=== PATIENT | female | born 1930 | race Caucasian/White ===

== ENCOUNTER 2017-05-30 18:50 | Inpatient (IN) | payer MEDICARE, BC ==
[~2017-05-30] VITALS: Ht 160 cm; Wt 63.3 kg
--- NOTE | ~2017-05-30 | CON ---
PATIENT'S NAME: LISA COWAN [facility] AGE: 87 Y [address] ROOM: [place] [address] LOCATION: [facility] [place] ADMIT DATE: 05/30/2017 Consultation DISCHARGE DATE: FAMILY PHYSICIAN: Génesis Iraheta APRN ATTENDING PHYSICIAN: TOMEKA SEVERINO REFERRING PHYSICIAN: JORDAN FRIED MD A consult for ANNELIESE Thomson. HISTORY OF PRESENT ILLNESS: This 87-year-old lady, who is referred for rehab evaluation, was admitted on 05/31/2017 for hyperkalemia, renal insufficiency, poor appetite, decreased stamina, history of nephrolithiasis, right renal pelvis stones. Followed conservative treatment. Now, she is also reportedly with elevated BUN and creatinine. She was putting very little urine if any output and was diagnosed as urosepsis with hypotension. PAST MEDICAL HISTORY: Past history of significance as follows: 1. Dementia. 2. Hypothyroid. 3. Degenerative joint disease, both knees mostly. 4. Frequent UTIs, on and off. 5. Nephrolithiasis. 6. Status post perinephric abscess. PHYSICAL EXAMINATION: GENERAL: She is now alert, fairly well oriented, slow, but correct. Has a Johnson catheter. NEUROLOGIC: She can comprehend and express fairly well. Voice is clear and not wet. Can move all 4. She is slow, but can move. Muscle strength is 3+ to 4- over 5 overall. Neurologically intact. She can swallow without difficulty. VITAL SIGNS: Blood pressure 125/59, temperature 99.4, pulse 83, and respiration rate 16. She is 5 feet 3 inches tall and weighs 68.6 kg. MEDICATIONS: She is on the following medications: 1. Levaquin. 2. Protonix. 3. Namenda. 4. Albuterol. 5. Tylenol. 6. NaCl. PATIENT'S NAME: LISA COWAN [facility] AGE: 87 Y [address] ROOM: [place] [address] LOCATION: [facility] [place] ADMIT DATE: 05/30/2017 Consultation DISCHARGE DATE: FAMILY PHYSICIAN: Génesis Iraheta APRN ATTENDING PHYSICIAN: TOMEKA SEVERINO 7. Diflucan. 8. Potassium chloride. 9. Aricept. 10. Seroquel. 11. Zyprexa. 12. Haldol. 13. . 14. Meropenem. ASSESSMENT AND PLAN: She is able to ambulate 125 feet with short steps and front-wheeled walker, contact guard assistant manager quality management, without really much help. I feel this lady can go back to her assisted living, can continue there with PT, OT, and on a regular basis. I discussed all this with her daughter. She verbalized understanding and agreement. She should follow with her family physician to continue to encourage her to be active. Otherwise, she will fall behind in her ability. Thank you for this referral. MD CIRILO SCHNEIDER/modl /[id number] d: 06/04/17 1406 t: 06/06/17 0922, CONSULTATION REPORT
--- NOTE | ~2017-05-30 | OR ---
PATIENT'S NAME: LISA COWAN [facility] AGE: 87 Y [address] ROOM: [place] [address] LOCATION: [facility] [place] ADMIT DATE: 05/30/2017 OR/Procedure Report DISCHARGE DATE: FAMILY PHYSICIAN: Génesis Iraheta APRN ATTENDING PHYSICIAN: TOMEKA SEVERINO SURGEON: Zeus Ansari MD LEGAL COMPLIANCE OFFICER: DATE OF PROCEDURE: 06/16/2017 PREOPERATIVE DIAGNOSIS: Bilateral proximal ureteral stones. POSTOPERATIVE DIAGNOSIS: Bilateral proximal ureteral stones. PROCEDURES PERFORMED: Cystoscopy, right stent placement, and right extracorporeal shock wave lithotripsy. ANESTHESIA: MAC. INDICATIONS FOR PROCEDURE: The patient is an 87-year-old female with known bilateral nephrolithiasis. The patient has had prior ESWL without significant fracturing of her stones. She has also had ureteroscopy with limits of fracturing of her stones. Because of her advanced age and dementia, conservative management was the plan. During this hospitalization, she has had a urinary tract infection and was noted to have a right-sided hydronephrosis and what appears to be a separate upper pole. Therefore, it was discussed with the family members of another attempt at ESWL to potentially relieve the obstruction. DETAILS OF PROCEDURE: After informed consent was obtained, the patient was taken to the operating room. A MAC anesthetic was applied. She was placed in the dorsal lithotomy position. The groin area was prepped and draped in normal sterile fashion. Cystoscope was introduced into the urethra and bladder without difficulty. The right ureteral orifice was identified and cannulated with a guidewire up into the renal pelvis. Next, a 6-Macedonian multi- length stent was passed over the guidewire up into the renal pelvis. The patient was then transferred to the lithotripsy table. Fluoroscopy was used to target her stone. She received shocks starting at 14 kilovolts and gradually increased to 24 kilovolts. The patient received a total of 3000 shocks and at this time the stone appeared to fragment at least partially with the treatment. The patient tolerated her procedure well and was transferred to the recovery room in good condition. PATIENT'S NAME: LISA COWAN [facility] AGE: 87 Y [address] ROOM: [place] [address] LOCATION: [facility] [place] ADMIT DATE: 05/30/2017 OR/Procedure Report DISCHARGE DATE: FAMILY PHYSICIAN: Génesis Iraheta APRN ATTENDING PHYSICIAN: TOMEKA SEVERINO MD KIKE POON/filemon /[id number] CC: Génesis Iraheta APRN d: 06/16/17 2151 t: 06/23/17 0904, OPERATIVE SUMMARY
--- NOTE | ~2017-05-30 | DS ---
PATIENT'S NAME: LISA TANNER [facility] AGE: 87 Y [address] ROOM: [place] [address] LOCATION: [facility] [place] ADMIT DATE: 05/30/2017 Discharge Summary DISCHARGE DATE: 06/18/2017 FAMILY PHYSICIAN: Génesis Iraheta APRN ATTENDING PHYSICIAN: Inna Ontiveros CONSULTING PHYSICIANS: 1. La Ariza MD, Nephrology. 2. Alecia Miller MD, Gastroenterology. 3. Zeus Ansari MD, Urology. 4. Gulshan Leon MD, Physiatry. DISCHARGE DIAGNOSES: 1. Sepsis, likely urosepsis, resolved. 2. Acute kidney injury on chronic kidney disease 4. 3. Jaimie cystitis. 4. Hypokalemia, severe, resolved. 5. Obstructing right nephrolithiasis. 6. Dementia. 7. Gastritis. 8. Anemia of chronic disease. 9. Advanced age. 10. Depression. 11. Right-sided hydronephrosis, resolving. PROCEDURES: 1. Cystoscopy with right stent placement. 2. Right extracorporeal shock wave lithotripsy on 06/16/[address] Zeus Ansari. DISCHARGE MEDICATIONS: 1. Vitamin D3 2000 units p.o. twice daily. 2. Benazepril HCl 5 mg p.o. q.h.s. 3. Namenda XR 28 mg p.o. daily. 4. Mycostatin daily to affected areas. 5. Protonix 40 mg p.o. q.h.s. 6. Zoloft 100 mg p.o. q.h.s. 7. Tylenol 500 mg p.o. q.4 hours p.r.n. pain. 8. PreserVision 1 tablet p.o. daily. 9. Cytomel 25 mcg p.o. daily. 10. Multivitamin p.o. daily. 11. Colace 100 mg p.o. b.i.d. p.r.n. constipation. 12. Ferrous sulfate 325 mg p.o. twice daily. 13. Albuterol sulfate 2.5 mg per 0.5 mL 1 vial inhaler q.4 hours p.r.n. dyspnea. [facility] 87 Y [address] ROOM: [id number] [place], [place] [address] LOCATION: [facility] [place] ADMIT DATE: 05/30/2017 Discharge Summary DISCHARGE DATE: 06/18/2017 FAMILY PHYSICIAN: Génesis Iraheta APRN ATTENDING PHYSICIAN: Inna Ontiveros. Guaifenesin 600 mg p.o. twice daily p.r.n. congestion. MEDICATIONS HELD UPON DISCHARGE: 1. ASA 325 mg daily. 2. Lasix 20 mg p.o. daily. 3. Potassium chloride 20 mEq p.o. daily. 4. Mobic 7.5 mg p.o. daily. PERTINENT LABORATORY AND DATA: Urine from 05/30/2017 grew out Jaimie albicans [id number] colonies. Urine culture collected on 06/07/2017 showed no growth after 2 days. Potassium at the time of admission was elevated at 5.5, we got this trended down at its honorio, was 2.9, on the day of discharge was 4.4. Creatinine at the time of admission 6.0, this trended to a honorio of 1.9 on 06/03/2017, then trended back up to 2.7 by 06/10/2017, then leveled out and trended to 2.2 which is where this was at upon day of discharge. GFR on admission was 7 and 25 on the day of discharge. Hemoglobin at admission was 11.2, trended down to 7.9, recovered and was 9.0 at the time of discharge. Iron on 06/14/2017 was 38. Ferritin elevated at 361.2. Magnesium at admit was 2.5, this trended down to 1.7, recovered and was at 2.2 on the day of discharge. Phosphorus 4.6 at admission, trended down to 1.5 on 06/02/2017, then recovered and was 3.5 on the day of discharge. Occult stool positive x1 on 05/30/2017. Blood cultures negative from 05/30/2017 and these were also repeated on 06/07/2017. HOSPITAL COURSE: Please refer to the admitting H and P dictated by Dr. Potts for more detailed outline of the patient's presentation. The patient was admitted, and the patient was started on IV Protonix drip and sepsis workup was initiated. Lactate was elevated at 1.9, which dropped into normal range of 1.1 on 05/31. Procalcitonin at admission was 0.11, which trended down to 0.6 by June 07. The patient was given Kayexalate and insulin to help treat her hyperkalemia. She was placed on IV meropenem. GI seen the patient in consultation. Please refer to his dictation for further outline of the patient's presentation. They scheduled her for EGD and colonoscopy. The patient did have a biopsy of the gastric lining, which did show mild chronic gastritis and reactive gastropathy. A small polyp was biopsied and also did show mild chronic gastritis. The patient was placed on Protonix. On 06/01, Diflucan was added. The patient's electrolytes continued to improve with replenishing. No overt bleeding was noted on the EGD or colonoscopy. The patient did have [id number] diverticulosis. The patient had no difficulties while hospitalized with her bowel movements. Her hemoglobin was trended during her stay. Creatinine was improving, on 05/31 it was 2.5. Urology had seen the patient in consultation on 06/03/2017, please refer to PATIENT'S NAME: LISA TANNER [facility] AGE: 87 Y [address] ROOM: [place] [address] LOCATION: [facility] [place] ADMIT DATE: 05/30/2017 Discharge Summary DISCHARGE DATE: 06/18/2017 FAMILY PHYSICIAN: Génesis Iraheta APRN ATTENDING PHYSICIAN: Inna Ontiveros his dictation for more detailed outline of his consult. At that point, an abdominopelvic CT was obtained for further evaluation of her kidney stone. This again showed the bilateral hydronephrosis, a large calculus in the right renal pelvis with multiple additional nonobstructing calculi in the right kidney. There was scarring and cortical thickening of the upper pole of the left kidney with a large calculus in the proximal portion of the ureter with drains at upper pole of the left kidney and multiple additional nonobstructing calculi in the left kidney. The patient's creatinine continued to improve with hydration. The family wanted conservative management in terms of her obstructing renal stone. Therefore, the patient was monitored and kept on IM antibiotics, she remained afebrile. The instrumentation for ESWL was not available until Thursday. The patient had some underlying dementia. At baseline, she had mild agitation throughout the hospitalization. This was handled with nightly Zyprexa, that was seemed to settle well with her. The patient was treated with nystatin ointment for some fungal skin rash. The patient had adequate urine output. The patient ended up having a fever on 06/08, at that point, Levaquin was discontinued and the patient was started on meropenem (cefepime could not be used given the indication to penicillin). After this, the patient remained afebrile. We bridged her to the point of undergoing the lithotripsy on 06/16/2017. The patient tolerated that procedure well. The meropenem was discontinued at that point. She remained afebrile. Ultimately, a renal ultrasound was repeated, which noted the 2.4 cm proximal ureter stone. After reviewing outpatient lab work, it appears Mrs. Tanner's creatinine in December of 2016 was 1.89. Therefore, it was felt her creatinine was near to her baseline and we could safely discharge. I did discuss the case with Dr. Edvin Salgado concerning the potential for need a percutaneous intervention at this time, he did not feel that is necessary. This was also discussed with Dr. Delisa Mendez and Dr. Donato who all were in agreeance. DISPOSITION: Ultimately, the patient was discharged back to the memory unit of the [facility] in [place]. She is to follow fall precautions. She should follow up with Dr. Ansari as per his recommendations, which I believe is 07/09/2017 when she will undergo her second lithotripsy. She should see Dr. Delisa Mendez, Nephrology on 07/01/2017 with lab work. We asked that she follow up with her primary care provider, Génesis Iraheta, in 1 week, at that time, a renal panel should be checked to follow her creatinine. Discharge for this patient took greater than 60 minutes and included coordinating care and visiting with multiple subspecialties. Counseled with the patient and her family who agreed with the discharge plan. I did attempt to visit with Génesis Iraheta APRN, who was out of the office today. PATIENT'S NAME: LISA TANNER [facility] AGE: 87 Y [address] ROOM: [place] [address] LOCATION: [facility] [place] ADMIT DATE: 05/30/2017 Discharge Summary DISCHARGE DATE: 06/18/2017 FAMILY PHYSICIAN: Génesis Iraheta APRN ATTENDING PHYSICIAN: Inna Ontiveros LATANYA Sidra RUTHERFORD PA-C FOR MD МАРИНА PLATA/yaniquel /[id number] CC: BETTY Cheek MD Abhisekh Sinha Ray, MD d: 06/19/17 0152 t: 06/21/17 1523, DISCHARGE SUMMARY
--- NOTE | ~2017-05-30 | CON ---
PATIENT'S NAME: LISA COWAN [facility] AGE: 87 Y [address] ROOM: [address] [address] LOCATION: [facility]ICU ADMIT DATE: 05/30/2017 Consultation DISCHARGE DATE: FAMILY PHYSICIAN: PHYSICIAN, UNKNOWN ATTENDING PHYSICIAN: TOMEKA SEVERINO DATE OF CONSULTATION: 05/31/2017 REFERRING PHYSICIAN: JORDAN FRIED MD REQUESTING PHYSICIAN: Dr. Williamson. REASON FOR CONSULTATION: Severe hyperkalemia and elevated BUN and creatinine. HISTORY OF PRESENT ILLNESS: The patient is an 87-year-old white female with a history of dementia and she has been in a long term for the last 1 year. The patient was noted to have decreased appetite for the last 3-4 days. She was also noted to have very little urine output. Eventually, the long term staff transferred her to [facility] Room, where she was noted to have a creatinine of 6.0 and a potassium of 8.7 with a severe metabolic acidosis. Her baseline creatinine is 1.0. The patient is normally on potassium and also meloxicam. She was given Kayexalate, glucose, insulin therapy, double dose of nebulizer, and then transferred to [facility] for further management. I have been asked to see her because of her elevated creatinine. She has a diagnosis of urosepsis and she was hypotensive with systolic blood pressure 85. Her blood pressure has improved with IV crystalloids. REVIEW OF SYSTEMS: GENERAL: She denies any fever or chills. HEENT: Denies any sore throat or sinus congestion. CARDIOVASCULAR: Denies any chest pain or dyspnea on exertion. RESPIRATORY: Denies any shortness of breath, cough, or wheezing. GI: Denies abdominal pain, nausea, or vomiting. : Denies any dysuria or frequency. MUSCULOSKELETAL: Denies any joint pain or swelling. SKIN: Denies any rash or pruritus. IMMUNOLOGIC: Denies any allergies or hay fever. LYMPHATIC/HEMATOLOGIC: Denies any lymph node enlargement or easy bruising. ENDOCRINE: Denies any heat or cold intolerance. PSYCHIATRIC: Denies any sadness, crying spells, poor concentration, or panic attack. ALLERGIES: PATIENT'S NAME: LISA COWAN [facility] AGE: 87 Y [address] ROOM: [id number] [place], [place] [address] LOCATION: [facility] ADMIT DATE: 05/30/2017 Consultation DISCHARGE DATE: FAMILY PHYSICIAN: PHYSICIAN, UNKNOWN ATTENDING PHYSICIAN: TOMEKA SEVERINO ALLERGIC TO PENICILLIN, LIDOCAINE, AND TETRACYCLINE. MEDICATIONS: Outpatient medications include, 1. Vitamin C. 2. Metoprolol 25 mg twice a day. 3. Cholecalciferol 2000 international units twice a day. 4. Zoloft 100 mg every day. 5. Aricept 5 mg a day. 6. Acetaminophen p.r.n. 7. Cytomel 25 mcg daily. 8. Namenda XR 28 mg a day. 9. Multivitamin once a day. 10. Docusate 100 mg a day. 11. Ferrous sulfate 325 mg twice a day. 12. Aspirin 325 mg a day. 13. Furosemide 20 mg every day. 14. Potassium chloride 20 mEq a day. Meloxicam 7.5 mg every day. 15. Albuterol 2.5 mg p.r.n. 16. Guaifenesin every day. PAST MEDICAL HISTORY: Dementia, hypothyroidism, hypertension, degenerative joint disease, recurrent nephrolithiasis, frequent urinary tract infections in the past, perinephric abscess by history. PAST SURGICAL HISTORY: She had lithotripsy done. FAMILY HISTORY: No family history of kidney disease or dialysis. SOCIAL HISTORY: The patient lives in a long term. She has dementia. She has no history of tobacco or alcohol. PHYSICAL EXAMINATION: GENERAL APPEARANCE: An 87-year-old, lean and thin white female, quite pleasant, and sitting on the hospital bed, not in acute distress. VITAL SIGNS: Temperature 98.8, pulse 96, systolic blood pressure 138, diastolic 63. HEENT: Head; normocephalic. Pupils are round and equal. Normal eyelids and conjunctivae. Oral cavity clear. Dry mucosa. NECK: Trachea is central. No thyromegaly. Unable to evaluate jugular venous pulsation. No bruit. PATIENT'S NAME: LISA COWAN [facility] AGE: 87 Y [address] ROOM: [id number] [place], [place] [address] LOCATION: [facility] ADMIT DATE: 05/30/2017 Consultation DISCHARGE DATE: FAMILY PHYSICIAN: PHYSICIAN, UNKNOWN ATTENDING PHYSICIAN: TOMEKA SEVERINO CARDIOVASCULAR: Heart sounds are audible in all the areas without any gallop. There is 3/6 systolic murmur. Pulse is regular in rhythm. LUNGS: Bilaterally clear to auscultate. No intercostal retraction. ABDOMEN: Soft, nontender, slightly distended. EXTREMITIES: No clubbing or cyanosis. SKIN: No sign of vasculitis. LYMPHATICS: Did not examine lymphatics. HIGHER PSYCHIATRIC FUNCTION: Could not be tested. The patient has dementia. NEUROLOGIC: She is alert and grossly nonfocal. LABORATORY DATA: WBC 12.2, hemoglobin 11.2, hematocrit 35.2, platelet count 248, glucose 121, BUN 88, creatinine 4.2, sodium 144, potassium 4.5, chloride 111, bicarbonate 24, calcium 8.2, albumin 2.8, GFR of 10. ASSESSMENT: 1. Acute kidney injury most likely from prerenal etiology. The patient has not been eating for 3-4 days. She developed sepsis, possibly urosepsis and she was hypotensive. She was also on meloxicam. She was also oliguric. 2. Severe hyperkalemia due to diminished glomerular filtration rate and cellular shift from severe metabolic acidosis. 3. Metabolic acidosis. 4. Dementia. 5. Recurrent nephrolithiasis. 6. Urosepsis with hypotension. PLAN: I agree with IV fluid and I will give her IV bicarbonate. We will have to check her renal ultrasound to make sure that she does not have any obstruction with the kidney stones. She does not need dialysis at this time. I explained to the patient if she becomes uremic in future, she may need temporary dialysis, but I would not advocate long-term dialysis for her. We will obviously hold her meloxicam and her potassium. Thank you very much for allowing me to participate in this patient's care. M MD RUPERTO FUCHS/filemon PATIENT'S NAME: LISA COWAN [facility] AGE: 87 Y [address] ROOM: [place] [address] LOCATION: [facility]ICU ADMIT DATE: 05/30/2017 Consultation DISCHARGE DATE: FAMILY PHYSICIAN: PHYSICIANSUHAS ATTENDING PHYSICIAN: TOMEKA SEVERINO /[id number] CC: Génesis Iraheta APRN d: 05/31/17 1225 t: 06/01/17 1039, CONSULTATION REPORT
--- NOTE | ~2017-05-30 | HP ---
PATIENT'S NAME: LISA COWAN [facility] AGE: 87 Y [address] ROOM: [place] [address] LOCATION: [facility] ADMIT DATE: 05/30/2017 History & Physical DISCHARGE DATE: FAMILY PHYSICIAN: PHYSICIAN, UNKNOWN ATTENDING PHYSICIAN: TOMEKA SEVERINO DATE OF SERVICE: CHIEF COMPLAINT: Hyperkalemia, RITCHIE, and UTI. HISTORY OF PRESENT ILLNESS: This is an 87-year-old, demented, female, who lives in dementia unit in [place], and for the last few days, the patient has been having decreased oral intake and also decreased urine output. Urinalysis was checked and showed a UTI. The patient was transferred to [facility], where they did some blood work and it was found to have a creatinine at 6.08, BUN of 127, potassium at 8.7, and her vitals on arrival over there was 88/51 blood pressure and heart rate was 65, temperature was 97.4, respiration rate was 18, and saturation was 95% on room air. EKG was performed, which showed evidence of tall peaked T-wave and prolonged WV interval, and the patient was given IV regular insulin, dextrose, albuterol nebulization, Kayexalate, and sodium bicarb x2 and the patient was sent over here for further care. At baseline, the patient is very demented, is alert, but disoriented x3 at all times. The patient denies any other symptoms and the story I got is from the daughter whom I interviewed personally. REVIEW OF SYSTEMS: As mentioned in the history of present illness. All other systems were reviewed and were negative except those mentioned in the history of present illness. PAST MEDICAL HISTORY: 1. Dementia. 2. Hypothyroidism. 3. Hypertension. 4. Frequent UTI in the past. 5. History of kidney stone in the past. ALLERGIES: PENICILLIN, TETRACYCLINE, LIDOCAINE. PATIENT'S NAME: LISA COWAN [facility] AGE: 87 Y [address] ROOM: [place] [address] LOCATION: [facility] ADMIT DATE: 05/30/2017 History & Physical DISCHARGE DATE: FAMILY PHYSICIAN: PHYSICIAN, UNKNOWN ATTENDING PHYSICIAN: TOMEKA SEVERINO HOME MEDICATIONS: Currently, it has been reconciled. SOCIAL HISTORY: No history of alcohol, illegal drug, or cigarette. FAMILY HISTORY: The patient does not remember anything about her parents. PAST SURGICAL HISTORY: The patient does not remember, but per medical records, the patient had bilateral ureteral stent placed in the past for bilateral nephrolithiasis. PHYSICAL EXAMINATION: VITAL SIGNS: At the time of my evaluation, temperature 98, heart rate 87, blood pressure 105/84, MAP of 71, respirations of 14, saturation of 96% on room air. GENERAL APPEARANCE: Alert and disoriented x3. Currently, in no acute distress. HEENT: Pupils are equally round and reactive to light. Extraocular muscles intact. Anicteric sclerae. Dry oral mucosa. NECK: No JVD. CARDIOVASCULAR: Murmur grade 3. No rubs, no gallops. Normal S1, S2. Regular rate and rhythm. RESPIRATORY: Clear. No rales, no rhonchi, no crackles, no wheezing. ABDOMEN: Soft, nontender, nondistended, bowel sounds present, and no mass. EXTREMITIES: No edema in upper or lower extremities. NEUROLOGIC: Cannot be assessed given the patient is demented and does not follow commands. On gross examination, there is no facial droop. There is no slurred speech. SKIN: No ulcer, no rash, no cyanosis. LABORATORY DATA: Currently, our labs are pending and only thing came back right now is the BNP, which showed glucose of 158, BUN 116, creatinine 6.0, sodium 139, potassium 5.5, chloride 109, CO2 of 18, calcium 8.9, GFR 7. IMAGING STUDIES: EKG from the outside facility today at 5:15 p.m. showed sinus rhythm, heart rate of 64 with a tall peaked T-wave and also prolonged WV interval at 225. No acute ischemic changes. Repeat EKG here in our facility at 8:12 p.m. 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 Still has a tall peaked T-wave in the anterior leads. Intervals are within normal limits. No acute ischemic changes. PATIENT'S NAME: LISA COWAN [facility] AGE: 87 Y [address] ROOM: [place] [address] LOCATION: [facility] ADMIT DATE: 05/30/2017 History & Physical DISCHARGE DATE: FAMILY PHYSICIAN: PHYSICIAN, UNKNOWN ATTENDING PHYSICIAN: TOMEKA SEVERINO ASSESSMENT AND PLAN: 1. Regarding her acute kidney injury: Because of acute kidney injury, the patient has hyperkalemia, this is from the dehydration from decreased oral intake. The plan will be a Johnson catheter for urinary output measuring. Continue IV hydration. The patient looks dry on examination. I will give hydration with normal saline and also with a sodium bicarbonate drip. Watch her closely. We will check her BNP frequently later tonight. We will get a complete abdominal ultrasound in the morning. I will get a Nephrology consult in the morning. Further plan will depend on clinical course. 2. Regarding her urinary tract infection: Get a urine culture and also start her on IV meropenem. Dosing per pharmacy. Also get blood culture 2 sets. Further plan depends on clinical course. 3. Regarding her hyperkalemia: This is from acute kidney injury. Right now, potassium is at 5.5. I will start her on 1 dose per rectum Kayexalate 30 g and also with IV regular insulin 10 units, then dextrose 50%. Further plan will depend on clinical course. We will check BMP later. 4. Regarding her hypotension: This is from the dehydration. As mentioned before, the patient will be getting normal saline and also a sodium bicarb drip for now. Depending on her bicarbonate, her sodium bicarb may be discontinued depending on the blood work later on tonight. 5. Regarding her DVT prophylaxis: The patient will begin heparin subcu. 6. She is DNR/DNI. Her daughter is the power of field marketing manager, her name is Tejal, phone# [phone]. Time spent in care on the day of admission 50 minutes, where 20 minutes was spent on chart review and the interview and also on physical examination. The remainder of the time was spent on counseling, including going over the plan of care with the daughter and also addressing all her questions and concerns to her satisfaction. I also went over the plan of care with the nurse. Further plan will depend on clinical course. MD COLEEN ADAMS/filemon /[id number]: [id number] T: [id number] HISTORY & PHYSICAL
--- NOTE | ~2017-05-30 | CON ---
PATIENT'S NAME: [facility] AGE: 87 Y [address] ROOM: [place] [address] LOCATION: [facility] ADMIT DATE: 05/30/2017 Consultation DISCHARGE DATE: FAMILY PHYSICIAN: Génesis Iraheta APRN ATTENDING PHYSICIAN: TOMEKA SEVERINO DATE OF CONSULTATION: 06/03/2017 REFERRING PHYSICIAN: JORDAN FRIED MD HISTORY OF PRESENT ILLNESS: The patient is an 87-year-old alf female with dementia, admitted secondary to renal insufficiency. The patient had poor appetite and was transferred to [facility], where she was noted to have a creatinine of 6 and potassium of 8.7 with severe metabolic acidosis. The patient was then transferred to [facility] for further treatment. The patient has a history of nephrolithiasis. I have followed her stones conservatively. The patient had a renal ultrasound that showed a large right renal pelvic stones. The patient had a right renal pelvic stone, which I have followed conservatively. However, the dimensions on the ultrasound suggests the stone has increased in size. Since the ultrasound is not completely reliable imaging for stones, I recommended abdominopelvic CT scan for further evaluation of her stone. PAST MEDICAL HISTORY: Significant for dementia, hypothyroidism, hypertension, degenerative joint disease, nephrolithiasis, and recurrent cystitis. PAST OPERATIONS: Include lithotripsies. MEDICATIONS: See detailed history and physical. ALLERGIES: PENICILLIN, LIDOCAINE, AND TETRACYCLINE. SOCIAL HISTORY: The patient resides in a alf with dementia. The patient is a nonsmoker and does not consume alcohol. REVIEW OF SYSTEMS: Negative. PHYSICAL EXAMINATION: GENERAL: Elderly female, in no acute distress. PATIENT'S NAME: [facility] AGE: 87 Y [address] ROOM: [place] [address] LOCATION: [facility] ADMIT DATE: 05/30/2017 Consultation DISCHARGE DATE: FAMILY PHYSICIAN: Génesis Iraheta APRN ATTENDING PHYSICIAN: TOMEKA SEVERINO EYES: Extraocular motion intact EARS, NOSE, MOUTH, AND THROAT: No nasal or ear drainage noted. LUNGS: Clear bilaterally. CARDIAC: Regular rhythm and rate with systolic murmur. ABDOMEN: Benign. NEURO: Grossly intact. SKIN: Within normal limits. IMPRESSION: 1. Renal insufficiency. 2. History of nephrolithiasis. 3. Possible urosepsis. PLAN: We will schedule the patient for abdominopelvic CT scan for further evaluation of her nephrolithiasis. MD KIKE POON/filemon /[id number] d: 06/04/17 0242 t: 06/23/17 0902, CONSULTATION REPORT
--- NOTE | ~2017-05-30 | CON ---
PATIENT'S NAME: THAI COWANARA Travis [facility] AGE: 87 Y [address] ROOM: [place] [id number] LOCATION: [facility] ADMIT DATE: 05/30/2017 Consultation DISCHARGE DATE: FAMILY PHYSICIAN: PHYSICIAN, UNKNOWN ATTENDING PHYSICIAN: TOMEKA SEVERINO REFERRING PHYSICIAN: JORDAN FRIED MD CHIEF COMPLAINT: This is an 87-year-old seen for fecal blood positive in stools and anemia, possible GI bleeding. HISTORY OF PRESENT ILLNESS: An 87-year-old female was admitted from [facility] with history dementia, chronic renal failure with acute kidney injury, history of UTI, septicemia. Her potassium was 8.7 on admission. BUN was 127 and creatinine 6.08 on admission. Her vital signs were 88/51. This was all done at [facility]. Heart rate was 65, temperature was 97.4. After stabilization, her creatinine and potassium improved with treatment with Kayexalate, and now she continues to be anemic. Creatinine is 4.2, BUN is 88, potassium is 4.5, she is occult blood positive in stools and her hemoglobin is 9.9 g. She passed dark brown stools while here. PAST MEDICAL HISTORY: Dementia, hypothyroidism, hypertension, UTI, history of kidney stone in the past. ALLERGIES: SHE IS ALLERGIC TO PENICILLIN, TETRACYCLINE, AND LIDOCAINE. MEDICATIONS: Reconciled. SOCIAL HISTORY: Denies smoking, alcohol, or illicit drug intake. FAMILY HISTORY: Could not be obtained. She is very demented and does not remember any of her family history. REVIEW OF SYSTEMS: Could not be obtained properly because of her dementia. She says that "I know I am here." PHYSICAL EXAMINATION: GENERAL: Reveals elderly lady, who is not in acute discomfort, lying quietly in bed. [facility]GE[facility] 87 Y [address] ROOM: [place] [address] LOCATION: [facility] ADMIT DATE: 05/30/2017 Consultation DISCHARGE DATE: FAMILY PHYSICIAN: PHYSICIAN, UNKNOWN ATTENDING PHYSICIAN: TOMEKA SEVERINO VITAL SIGNS: Show blood pressure is 138/53, pulse is 93 per minute, respirations 25 per minute, temperature is 98.8 degree Fahrenheit. HEENT: She is pale, she is anicteric. Head is normocephalic and atraumatic. NECK: Supple. No lymphadenopathy. CHEST: Clear to palpation, percussion, auscultation. CARDIAC EXAMINATION: Reveals both heart sound normal. No S3. No murmur. ABDOMEN: Soft. It is nontender. There is no hepatosplenomegaly. There is no ascites. Bowel sounds are active. NEUROLOGICAL: Briefly, did not show any lateralizing signs. MUSCULOSKELETAL: Could not be evaluated properly; however, she has no restrictive joint disease. LABORATORY DATA: Shows sodium 144, potassium 4.5, chloride 111, bicarbonate 24, BUN 88, creatinine 4.2, glucose 121, hemoglobin 9.9, platelets 166. ASSESSMENT: The patient's acute kidney disease has resolved to some extent. Her hyperkalemia has been corrected and she is euvolemic. Vital signs are stable. She is continued to be anemic and has a hemoglobin of 9.9 g. She needs to be evaluated for a GI bleeding because of occult blood being positive. We are going to schedule her for EGD and colonoscopy. She will be difficult to prep for colonoscopy; however, I talked to her daughter, Ashley, she said that she will be here to help her and she will need nurse's care for preparation. I talked to her daughter in detail about the nature of EGD and colonoscopy procedure and what is involved, and she agreed and consented to have her mother go through this. The consent was signed together with Saundra Caicedo RN, taking care of her. We appreciate sharing care of this patient. MD TARYN KIRKPATRICK/filemon /[id number] d: t: 06/01/17 1109, CONSULTATION REPORT
[~2017-05-30 18:50] MED LIST: ALEVE220 M1 PO; ARICEPT5 MG; ARICEPT5 MG PO; ASPIRIN325 MG PO; BACTRIM SS 400/1 TAB PO; CEFTIN250 MG PO; COLACE100 MG PO; CYTOMEL25 MCG PO; DIFLUCAN100 MG PO; ENSURE ACTIVE296 ML PO; FEOSOL325 MG PO; FLAGYL500 MG PO; GLUCOSAMINE CH1 EAC3 PO; GLUCOSAMINE HC500 MG; GLUCOSAMINE HC500 MG PO; HCTZ; HUMIBID LA (MU600 MG PO; HYDROCHLOROTHIA25 MG; HYDRODIURIL25 MG PO; INVANZ 1 G1 GM/100 M IV; K-TAB ER20 MEQ PO; LASIX20 MG PO; LEVAQUIN 250 M250 MG PO; LOPRESSOR25 MG PO; MACROBID100 MG PO; MULTIVITAMINS1 EAC1 PO; NAMENDA XR28 MG PO; NAMENDA1 EACH; NAPROSYN250 MG PO; OXYGEN M-15; PRESERVISION L1 EACH PO; PROCARDIA10 MG PO; TOPROL XL 5050 MG; TRIMETHOPRIM100 MG PO; TYLENOL EXTRA500 MG PO; TYLENOL/COD#31 TAB PO; VITAMIN D1000 UNIT PO; VITAMIN D400 UNIT; ZOLOFT100 MG PO; ZOLOFT25 MG
[2017-05-30 20:23] LABS: ANION GAP 17.5 (10.0-19.0); CALCIUM 8.9 mg/dL (8.5-10.5); POTASSIUM 5.5 mMol/L (3.7-5.1)
[2017-05-30 21:19] LABS: BILIRUBIN URINE NEGATIVE (NEGATIVE); BLOOD URINE 250 /UL (NEGATIVE); COLOR URINE RED (YELLOW); GLUCOSE URINE 50 mg/dL (NEGATIVE); KETONE URINE NEGATIVE (NEGATIVE); LEUKOCYTES URINE 500 /UL (NEGATIVE); NITRITE URINE NEGATIVE (NEGATIVE); PH URINE 6.5 (4.0-8.0); PROTEIN URINE 100 mg/dL (NEGATIVE); TURBIDITY URINE 4+ (CLEAR); UROBILINOGEN URINE NORMAL (NORMAL)
[2017-05-30 21:24] LABS: BASOPHIL % 0.3 %; EOSINOPHIL # 0.3 K/uL (0.0-0.5); EOSINOPHIL % 2.5 %; HEMATOCRIT 35.2 % (30.0-46.0); HEMOGLOBIN 11.2 g/dL (10.0-15.0); IMMATURE GRANULOCYTE % 0.3 %; LYMPHOCYTE # 1.4 K/uL (0.8-4.0); LYMPHOCYTE % 11.5 %; MCH 29.6 pg (27.0-34.0); MCHC 31.8 gm/dL (32.0-36.5); MCV 92.9 fl (83.0-98.0); MONOCYTE % 8.5 %; MPV 9.2 fl (9.4-12.4); NEUTROPHIL # (ANC) 9.2 K/uL (1.8-7.8); NEUTROPHIL % 76.9 %; NRBC % 0 /100WBC (0-0.00); PLATELET COUNT 248 K/uL (150-450); RBC 3.79 M/uL (3.00-5.00); RDW-CV 14.2 % (11.9-14.6)
[2017-05-30 21:33] LABS: RBC URINE FULL FIELD #/HPF (NEGATIVE)
[2017-05-30 21:35] LABS: INR - (THERAPEUTIC) 1.07 (0.92-1.07); PROTIME 11.2 SECONDS (9.8-11.4)
[2017-05-30 21:35] LABS: WBC URINE PACKED FIELD #/HPF (NEGATIVE)
[2017-05-30 21:36] LABS: BACTERIA URINE FEW (NEGATIVE)
[2017-05-30 21:44] LABS: ALBUMIN 2.8 gm/dL (3.5-5.0); ALK PHOS 136 IU/L (33-138); ALT 24 IU/L (12-78); AST 20 IU/L (10-40); MAGNESIUM 2.5 mg/dL (1.8-2.6); PHOSPHORUS 4.6 mg/dL (2.5-4.9); TOTAL BILIRUBIN 0.2 mg/dL (0.0-1.5); TOTAL PROTEIN 7.4 g/dL (6.0-8.4)
[2017-05-30] MEDS ORDERED: MOBIC7.5 MG PO (22:29)
[2017-05-30] MEDS ORDERED: PROVENTIL2.5 MG/0.5 INH (22:37)
[2017-05-30] MEDS ORDERED: TYLENOL EXTRA500 MG PO (22:38)
[2017-05-30] MEDS ORDERED: HUMIBID LA (MU600 MG PO (22:39)
[2017-05-31 00:20] LABS: ANION GAP 17.1 (10.0-19.0); CALCIUM 8.8 mg/dL (8.5-10.5); POTASSIUM 5.1 mMol/L (3.7-5.1)
[2017-05-31 00:22] LABS: CREATININE 5.7 mg/dL (0.5-1.1)
[2017-05-31 02:19] LABS: ANION GAP 15.9 (10.0-19.0); CALCIUM 8.6 mg/dL (8.5-10.5); CREATININE 5.4 mg/dL (0.5-1.1); POTASSIUM 4.9 mMol/L (3.7-5.1)
--- NOTE | 2017-05-31 04:46 | NUR ---
Significant Event: Admitted at 1946. Oriented to self. Agitated with cares. VSS. RA. Johnson drained 470 ml bloody urine. Kayexalate given rectally. XL BM x4. Hemoccult +. Excoriated in groin and bottom. Denies pain. Insulin 10 units and 1 amp D50 given x2. Potassium 4.9. NS at 100 ml/hr. Bicarb at 150 ml/hr. Follow up: Abdominal US. GI and Renal consults.
[2017-05-31 08:10] LABS: HEMATOCRIT 29.5 % (30.0-46.0); HEMOGLOBIN 9.9 g/dL (10.0-15.0); MCH 30.3 pg (27.0-34.0); MCHC 33.6 gm/dL (32.0-36.5); MCV 90.2 fl (83.0-98.0); MPV 9.2 fl (9.4-12.4); RBC 3.27 M/uL (3.00-5.00); RDW-CV 13.8 % (11.9-14.6); WBC 7.3 K/uL (4.0-11.0)
[2017-05-31 08:27] LABS: ANION GAP 13.5 (10.0-19.0); CREATININE 4.2 mg/dL (0.5-1.1); POTASSIUM 4.5 mMol/L (3.7-5.1)
--- NOTE | 2017-05-31 17:28 | NUR ---
PATIENT HAS BEEN STABLE ALL DAY.SHE STILL EXHIBITS CONSTANT CONFUSION IN MOST AREAS. SHE IS CALM AND COOPERATIVE. FAMILY HAS BEEN IN THE ROOM SINCE MORNING BEING SUPPORTIVE WHEN NEEDED. PATIENT HAS BEEN ON A CLEAR LIQUID DIET AND WILL HAVE AN ESOPHAGOGASTRODUODENOSCOPY AND COLONOSCOPY TOMORROW. UOP HAS BEEN ADEQUATE BUT CLOUDY WITH SEDIMENT, NO BLOOD. NO STOOL SINCE THIS MORNING (LIQUID STOOL). PATIENT HAS BEEN COOPERATIVE AND ALLOWED TURING.
--- NOTE | 2017-06-01 03:29 | NUR ---
Significant Event: Follow up: PATIENT ALERT TO SELF, FOLLOWS COMMANDS, HAS MILLER WITH RED, SEDIMENT, URINE, MULITPLE BOWL MOVEMENTS, RECIEVED ORDER FOR FLEXISEAL AND PLACED, BP BOARDERLINE, HR 110-130'S NO COMPLAINT OF PAIN
--- NOTE | 2017-06-01 05:34 | NUR ---
Significant Event: TOOK OVER CARES AT 0245. PATIENT ORIENTED TO SELF AND , DISORIENTED TO TIME AND PLACE. DENIES N/T. MOVES ALL EXTREMITIES SPONTANEOUSLY AND TO COMMAND.LUNGS CLEAR ON ROOM AIR. HIGHEST TEMP 100.6. HEART RATE IN 100S-120S. SBP IN 90S-100S. BICARB RUNNING AT 150/HR IN LEFT AC. INTERMITTENT ANTIBIOTICS. MILLER IN PLACE DRAINING PINK URINE. FLEXISEAL IN PLACE - DRAINED 225 OF GREEN TO CLEAR LOOSE STOOL. NO COMPLAINTS OF PAIN. CLEAR LIQUID DIET. Follow up: EGD/COLONOSCOPY TODAY
[2017-06-01 06:22] LABS: ALBUMIN 2.1 gm/dL (3.5-5.0); CALCIUM 7.5 mg/dL (8.5-10.5); CREATININE 3.1 mg/dL (0.5-1.1)
[2017-06-01 06:33] LABS: ANION GAP 12.9 (10.0-19.0); POTASSIUM 2.9 mMol/L (3.7-5.1)
--- NOTE | 2017-06-01 13:01 | NUR ---
Introdcued self and role of care management to patients daughter. Patient is sleepy from returning from EGD. Lori lives at [facility] in the Memory unit at [place]. Her daughter states that she is able to walk around on her own with a walker. She is able to take herself to the bathroom. The staff administer her medications. her daughter is hoping she will be able to return to [facility] on discharge. She denies any needs at this time. Will continue to follow.
--- NOTE | 2017-06-01 17:50 | NUR ---
PT ALERT TO SELF. FOLLOWS COMMANDS. HYPOTENSIVE AFTER RETURN FROM ENDO. 1000ML NS BOLUS GIVEN. BP FINE NOW. ALL OTHER VSS ON 2L 02. MILLER PATENT AND DRAINING YELLOW URINE WITH WHITE SEDIMENT. FLEXISEAL DC'D DURING COLONOSCOPY. BOTTOM REDDENED, ALOE VESTA APPLIED. IV TO R)FA SL. IV TO L)FA INFUSING 1/2 NS AT 50ML/HR.
[2017-06-01 18:22] LABS: CREATININE 2.6 mg/dL (0.5-1.1); MAGNESIUM 1.7 mg/dL (1.8-2.6); POTASSIUM 3.4 mMol/L (3.7-5.1)
[2017-06-01 18:23] LABS: ANION GAP 11.4 (10.0-19.0); CALCIUM 7.2 mg/dL (8.5-10.5)
--- NOTE | 2017-06-02 03:43 | NUR ---
Significant Event: PT ALERT, ORIENTED TO SELF. BASELINE DEMENTIA AND IMPAIRED MEMORY. PLEASANT AND FOLLOWS COMMANDS THIS SHIFT. GENERALIZED WEAKNESS. SBP 130S-140S, HR 80S. HIGHEST TEMP 101.2, TYLENOL GIVEN AT 2320. K 3.4, MG 1.7 TONIGHT. GAVE 20 K AND 400 MG. MILLER DRAINING YELLOW URINE WITH LARGE AMOUNT OF WHITE SEDIMENT. NO BM. R FOREARM PIV SL'D, L FOREARM PIV 1/2 NS AT 50/HR. CARDIAC DIET Follow up: CONTINUE TO MONITOR
[2017-06-02 09:50] LABS: CALCIUM 7.6 mg/dL (8.5-10.5); CREATININE 2.5 mg/dL (0.5-1.1); MAGNESIUM 1.9 mg/dL (1.8-2.6); PHOSPHORUS 2.6 mg/dL (2.5-4.9)
[2017-06-02 09:52] LABS: ANION GAP 11.4 (10.0-19.0); POTASSIUM 4.4 mMol/L (3.7-5.1)
--- NOTE | 2017-06-02 12:45 | NUR ---
Significant Event:PT IS ALERT TO SELF. THIS IS BASELINE PER FAMILY. GENERALIZED WEAKNESS. ONE ASSIST. GB WALKER. ON RA. CLEAR LUNG SOUNDS. ACTIVE BS. MILLER DRAINING THICK WHITE CLOUDY SEDIMENT URINE. CHANGE IVF . D/W TO RUN AT 75 X 1L. Follow up:MONITOR K LEVEL CALL IF <3.5 OR >5
[2017-06-02 18:34] LABS: ALBUMIN 2.2 gm/dL (3.5-5.0); CALCIUM 7.7 mg/dL (8.5-10.5); CREATININE 2.2 mg/dL (0.5-1.1); MAGNESIUM 1.6 mg/dL (1.8-2.6); POTASSIUM 3.5 mMol/L (3.7-5.1)
[2017-06-02 18:37] LABS: ANION GAP 11.5 (10.0-19.0); PHOSPHORUS 1.5 mg/dL (2.5-4.9)
--- NOTE | 2017-06-03 02:20 | NUR ---
Significant Event: Oriented to person and follows commands. History of dementia. 3 way ramirez placed during the day yesterday and CBI with little sediment. Left forearm IV SL. K lab draw q12h and call if K <3.5 or >5. Hypertensive (140-150s BP) and Tylenol given at hs 99.7 temperature. Follows commands and denies numbness/tingling. Follow up: CBI, IV antibiotics
--- NOTE | 2017-06-03 05:32 | NUR ---
CBI total out 4,025ml. CBI in 2,400ml. Urine 1625ml. 12 hour total.
[2017-06-03 05:52] LABS: BASOPHIL % 0.3 %; EOSINOPHIL # 0.3 K/uL (0.0-0.5); EOSINOPHIL % 4.5 %; HEMATOCRIT 29.2 % (30.0-46.0); HEMOGLOBIN 9.4 g/dL (10.0-15.0); IMMATURE GRANULOCYTE # 0.1 K/uL (0.0-0.3); LYMPHOCYTE # 0.9 K/uL (0.8-4.0); LYMPHOCYTE % 13.4 %; MCH 29.7 pg (27.0-34.0); MCHC 32.2 gm/dL (32.0-36.5); MCV 92.1 fl (83.0-98.0); MONOCYTE # 0.5 K/uL (0.0-1.0); MONOCYTE % 7.4 %; MPV 9.5 fl (9.4-12.4); NEUTROPHIL # (ANC) 5.2 K/uL (1.8-7.8); NEUTROPHIL % 73.4 %; NRBC % 0 /100WBC (0-0.00); RBC 3.17 M/uL (3.00-5.00); RDW-CV 13.5 % (11.9-14.6)
[2017-06-03 05:56] LABS: PLATELET COUNT 130 K/uL (150-450)
[2017-06-03 06:07] LABS: ANION GAP 10.4 (10.0-19.0); CALCIUM 7.7 mg/dL (8.5-10.5); CREATININE 1.9 mg/dL (0.5-1.1); MAGNESIUM 1.7 mg/dL (1.8-2.6); PHOSPHORUS 2.1 mg/dL (2.5-4.9); POTASSIUM 3.4 mMol/L (3.7-5.1)
[2017-06-03 06:11] LABS: ALBUMIN 1.9 gm/dL (3.5-5.0)
--- NOTE | 2017-06-03 10:32 | NUR ---
Significant Event: TOOK OVER PT CARES FROM [id number]. HX DEMENTIA. PT'S BASELINE IS ORIENTED TO PERSON. FOLLOWS SIMPLE COMMANDS. PERRLA. VITAL SIGNS STABLE; ON ROOM AIR. 3-WAY MILLER PATENT, DRAINING LIGHT YELLOW URINE WITH SEDIMENT. CBI RATE IS SLOW. UP TO CHAIR WITH MORNING WITH 2-ASSIST. PIV X2 SALINE LOCKED. INTERMITTENT ANTIBIOTICS. TAKES MEDICATIONS WHOLE WITH WATER. DENIES ANY PAIN. POTASSIUM LEVEL WAS 3.4 THIS AM; HOSPITALIST CALLED AND NO NEW ORDERS WERE GIVEN. Follow up: CALL IF POTASSIUM LEVEL IS <3.5 OR >5.0.
--- NOTE | 2017-06-03 11:16 | NUR ---
A - PT SCREENED D/T LOS. A/O X 1; THIS IS PT'S BASELINE D/T HX OF DEMENTIA. K+ 3.4, GLU 81, BUN/ZONE MANAGER 33/1.9, ALB 1.9, PO4 2.1. DIET: CARDIAC; INTAKE 0-75%, OVERALL INADEQUATE. D - AT RISK W/ INADEQUATE ORAL INTAKE R/T DECREASED APPETITE AEB INTAKE RECORD. I - GOAL: 50% OR BETTER AVERAGE INTAKE BY DISMISSAL. M/E - 1) WILL SEND ENSURE COMPACT W/ MEALS TO INCREASE NUTRIENT ALLOWANCE. 2) REC LIBERALZING DIET TO REGULAR TO PROMOTE INTAKE. 3) WILL F/U IN 2-3 DAYS.
--- NOTE | 2017-06-03 13:19 | NUR ---
Significant Event: a/o to person. denies pain. IV to right and left forearm saline locked- does receive intermittent IV antibiotics. ambulates with walker and one assist. Orders for potassium level check Q 12 hours and call if less than 3.5 or greater than 5. potassium level this am 3.4 reported with no new orders. CBI at slow rate. urine output is cloudy light yellow with white sediment. Dr. Ansari urologist consulted yesterday should see patient today. Dr. Stack consulted today. Possible transfer to [facility] when ready.
--- NOTE | 2017-06-03 15:26 | NUR ---
Chart reviewed. Patient just returned from walking in [place]. Daughter not in room. Will touch base with daughter tomorrow.
[2017-06-03 18:25] LABS: ALBUMIN 2.2 gm/dL (3.5-5.0); ANION GAP 12.2 (10.0-19.0); CALCIUM 7.8 mg/dL (8.5-10.5); MAGNESIUM 1.7 mg/dL (1.8-2.6); PHOSPHORUS 1.8 mg/dL (2.5-4.9); POTASSIUM 4.2 mMol/L (3.7-5.1)
--- NOTE | 2017-06-03 18:48 | NUR ---
Significant Event: Patient oriented to self, which is baseline. Up with one assist and walker. Vitals stable on room air. CBI running slow through ramirez and draining yellow cloudy with a lot of sediment. Periarea reddened. Right and left forearm IVs. up to see patient, abdominal/pelvic CT ordered. Started PO levaquin for UTI. Potassium at 1830 was 4.2. Follow up: call if potassium <3.5 or >5
--- NOTE | 2017-06-04 00:43 | NUR ---
PT WAS TRANSFERRED TO [facility] AT 2140 WITH BELONGINGS AND DAUGHTER WAS WITH HER. VSS. CARES TRANSFERRED TO EDDIE ANGEL.
--- NOTE | 2017-06-04 02:56 | NUR ---
Significant Event: TRANSFER FROM [facility]. PT ALERT, ORIENTED TO SELF ONLY. IS DNR/DNI. AMBULATES WITH 1PA, GAITBELT AND WALKER. HAS NOT BEEN IMPULSIVE THIS SHIFT. TELEMETRY ON WITH NO CALLS. SALINE LOCK TO L/R FA. CARDIAC DIET. MILLER PATENT, CBI RUNNING AT SLOW RATE- URINE IS YELLOW WITH LOTS OF WHITE SEDIMENT. FROM DEMENTIA UNIT IN [place]. DAUGHTER, ALICIA, IS POA. Follow up: [facility]ARMS, CONTINUE TO MONITOR
--- NOTE | 2017-06-04 04:05 | NUR ---
CBI BAG WAS NOT MARKED ON ARRIVAL TO FLOOR, UNSURE OF HOW MUCH CBI INFUSED. TOTAL OUTPUT FROM MILLER 1350. CBI RUNNING VERY SLOW.
[2017-06-04 06:23] LABS: ANION GAP 13.8 (10.0-19.0); CALCIUM 7.9 mg/dL (8.5-10.5); CREATININE 1.9 mg/dL (0.5-1.1); MAGNESIUM 1.8 mg/dL (1.8-2.6); PHOSPHORUS 2.1 mg/dL (2.5-4.9); POTASSIUM 3.8 mMol/L (3.7-5.1)
--- NOTE | 2017-06-04 16:32 | NUR ---
Significant Event:PT ALERT TO SELF. DENIES PAIN. UP TO CHAIR AND AMBULATED TO DOORWAY OF ROOM TODAY. MILLER DRAINING YELLOW URINE WITH WHITE SEDIMENT AND CBI RUNNING TO FLUSH SEDIMENT FROM BLADDER. CBI RUNNING AT SLOW RATE. EATING W/O DIFFICULTY. HAD ONE LARGE SOFT BROWN STOOL TODAY. IV RFA S/L'D. CARDIAC DIET. HX DEMENTIA. DAUGHTER HERE MOST OF DAY. Follow up:
[2017-06-04 18:43] LABS: ALBUMIN 2.1 gm/dL (3.5-5.0); ANION GAP 13.1 (10.0-19.0); BLOOD UREA NITROGEN 40 mg/dL (6-24); CHLORIDE 110 mMol/L (96-110); CO2 24 mMol/L (22-32); CREATININE 2.2 mg/dL (0.5-1.1); POTASSIUM 4.1 mMol/L (3.7-5.1); SODIUM 143 mMol/L (135-145)
[2017-06-05 04:18] LABS: BASOPHIL % 0.3 %; EOSINOPHIL # 0.4 K/uL (0.0-0.5); EOSINOPHIL % 5.9 %; HEMATOCRIT 28.5 % (30.0-46.0); HEMOGLOBIN 9.1 g/dL (10.0-15.0); IMMATURE GRANULOCYTE # 0.1 K/uL (0.0-0.3); LYMPHOCYTE # 1.3 K/uL (0.8-4.0); LYMPHOCYTE % 20.6 %; MCH 29.8 pg (27.0-34.0); MCHC 31.9 gm/dL (32.0-36.5); MCV 93.4 fl (83.0-98.0); MONOCYTE # 0.5 K/uL (0.0-1.0); MONOCYTE % 8.2 %; MPV 9.7 fl (9.4-12.4); NEUTROPHIL # (ANC) 3.9 K/uL (1.8-7.8); NRBC % 0 /100WBC (0-0.00); PLATELET COUNT 131 K/uL (150-450); RBC 3.05 M/uL (3.00-5.00); RDW-CV 13.7 % (11.9-14.6); WBC 6.1 K/uL (4.0-11.0)
[2017-06-05 04:27] LABS: ANION GAP 12.1 (10.0-19.0); CALCIUM 8.2 mg/dL (8.5-10.5); CREATININE 2.3 mg/dL (0.5-1.1); MAGNESIUM 2.1 mg/dL (1.8-2.6); PHOSPHORUS 2.7 mg/dL (2.5-4.9); POTASSIUM 4.1 mMol/L (3.7-5.1)
--- NOTE | 2017-06-05 05:07 | NUR ---
Significant Event: Patient alert and oriented to self and birthday. Disoriented to time and place. Denies pain, but was restless so gave tylenol at bed time. Takes pills one at a time. Does better when daughter is here. IV to R) forearm saline locked. Foely in place. White sediemtn noted in urine. Adequate urine output. No attempts to get out of bed. Slept most of night. Zyprexa at night. Telemetry on, no calls. Follow up: Monitor urine
--- NOTE | 2017-06-05 10:36 | NUR ---
A - NUTRITION F/U. PT W/ DEMENTIA, A/O X 1. GLU 94, BUN/POLYMERIZATION OVEN OPERATOR 44/2.3, ALB 2.0. DIET: REGULAR W/ ENSURE COMPACT TID. INTAKE IMPROVED TO 50-75%. D - AT RISK W/ INADEQUATE INTAKE AT TIMES R/T DECREASED APPETITE AEB INTAKE RECORD. I - GOAL: CONT CURRENT INTAKE. M/E - WILL F/U IN 4-5 DAYS.
--- NOTE | 2017-06-05 12:01 | NUR ---
Significant Event: Patient oriented to self, which is her baseline. Hx of dementia. Up with therapy this am to chair with 1 assist and walker. Vitals stable on room air. Right forearm IV saline locked. Tele monitor on with no calls. Reports tenderness with RUQ and RLQ palpation. Active bowel sounds. Groin reddened. Catheter cares done. Johnson output remains yellow, cloudy, with a lot of white sediment present. Pleasant/cooperative with cares. Daughter currently at bedside Follow up:
--- NOTE | 2017-06-05 12:23 | NUR ---
Called update to [facility], talked with Shahla. Let her know pt may be ready for discharge in day or two. Shahla doesn't know that they can accept back on a weekend as they don't have a pharmacy available to fill any new medications. Explained may be an issue to keep her on the weekend if she doesn't meet criteria to be here as is [facility] primary, not Medicare, and if comes on Thursday may already have had her meds for the day. She requested and I faxed her a current med list and she will see if they are all meds she has been on or has any concerns about not being able to get any of the meds on the weekend pt is currently on. Faxed her information.
[2017-06-05 18:08] LABS: ALBUMIN 2.2 gm/dL (3.5-5.0); CALCIUM 8.2 mg/dL (8.5-10.5); CREATININE 2.2 mg/dL (0.5-1.1); MAGNESIUM 2.1 mg/dL (1.8-2.6); PHOSPHORUS 2.4 mg/dL (2.5-4.9)
--- NOTE | 2017-06-05 18:32 | NUR ---
Significant event: Patient is alert to self. VSS, on room air. Has IV to Right FA, saline locked. Johnson in place, and patent. Takes meds one at a time, and does. well with this. Tele was removed today. Up in chair all afternoon. Family at bedside. Family reports that pt seems to be more depressed today. decreased Zyprexa to 2.5 at night. Cooperative with cares.
[2017-06-06 04:55] LABS: BASOPHIL % 0.3 %; EOSINOPHIL # 0.4 K/uL (0.0-0.5); EOSINOPHIL % 5.5 %; HEMATOCRIT 26.8 % (30.0-46.0); HEMOGLOBIN 8.5 g/dL (10.0-15.0); IMMATURE GRANULOCYTE # 0.1 K/uL (0.0-0.3); IMMATURE GRANULOCYTE % 0.9 %; LYMPHOCYTE # 1.6 K/uL (0.8-4.0); LYMPHOCYTE % 24.4 %; MCH 29.5 pg (27.0-34.0); MCHC 31.7 gm/dL (32.0-36.5); MCV 93.1 fl (83.0-98.0); MONOCYTE # 0.5 K/uL (0.0-1.0); MONOCYTE % 7.9 %; MPV 9.7 fl (9.4-12.4); NEUTROPHIL # (ANC) 3.9 K/uL (1.8-7.8); NRBC % 0 /100WBC (0-0.00); PLATELET COUNT 140 K/uL (150-450); RBC 2.88 M/uL (3.00-5.00); RDW-CV 13.9 % (11.9-14.6); WBC 6.4 K/uL (4.0-11.0)
[2017-06-06 05:12] LABS: ANION GAP 13.1 (10.0-19.0); CALCIUM 8.1 mg/dL (8.5-10.5); CREATININE 2.4 mg/dL (0.5-1.1); MAGNESIUM 2.1 mg/dL (1.8-2.6); PHOSPHORUS 2.7 mg/dL (2.5-4.9); POTASSIUM 4.1 mMol/L (3.7-5.1)
--- NOTE | 2017-06-06 06:00 | NUR ---
Significant Event: PT ALERT, ORIENTED TO SELF ONLY. COOPERATIVE WITH CARES. SMILES AND LAUGHS WITH CONVERSATION, ALTHOUGH, DOESN'T FOLLOW CONVERSATION. Follow up:
--- NOTE | 2017-06-06 19:23 | NUR ---
Significant Event: Patient is alert and oriented x3. Blood pressure this afternoon dropped this afternoon to 90's, patient was resting comfortably and listening to music/sleeping. IV fluids started in the R)FA IV. Denies nausea. Abdomen has become more distended this afternoon. 2 small turds passed this morning. Johnson is still draining very cloudy drainage, dark yellow in color. Cannot see through it. Up with 1PA, walker and gait belt, doing very well with ambulation. Appetite is good. Cooperative with cares.
--- NOTE | 2017-06-07 04:16 | NUR ---
Significant Event: PT PLEASANTLY CONFUSED. ORIENTED TO SELF ONLY. IVF INFUSING TO LEFT HAND CONTINUOUS AT 75ML/HR. PT COMPLAINED OF PAIN IN GROIN AREA DURING START OF SHIFT. WAS GIVEN TYLENOL X1 AROUND 0. FC IN PLACE AND PATENT. PT RESETED WELL DURING MOST OF SHIFT. COOPERATIVE WITH CARES. 1PA. Follow up:
[2017-06-07 04:38] LABS: BASOPHIL % 0.5 %; EOSINOPHIL # 0.5 K/uL (0.0-0.5); HEMATOCRIT 27.3 % (30.0-46.0); HEMOGLOBIN 8.8 g/dL (10.0-15.0); IMMATURE GRANULOCYTE # 0.1 K/uL (0.0-0.3); IMMATURE GRANULOCYTE % 1.1 %; LYMPHOCYTE # 1.4 K/uL (0.8-4.0); MCH 30.3 pg (27.0-34.0); MCHC 32.2 gm/dL (32.0-36.5); MCV 94.1 fl (83.0-98.0); MONOCYTE # 0.5 K/uL (0.0-1.0); MONOCYTE % 7.8 %; MPV 10.2 fl (9.4-12.4); NEUTROPHIL % 62.6 %; NRBC % 0 /100WBC (0-0.00); PLATELET COUNT 146 K/uL (150-450); RDW-CV 13.9 % (11.9-14.6); WBC 6.4 K/uL (4.0-11.0)
[2017-06-07 04:54] LABS: CALCIUM 8.1 mg/dL (8.5-10.5); CREATININE 2.6 mg/dL (0.5-1.1); PHOSPHORUS 3.1 mg/dL (2.5-4.9)
[2017-06-07 04:57] LABS: MAGNESIUM 2.1 mg/dL (1.8-2.6)
--- NOTE | 2017-06-07 15:22 | NUR ---
Significant Event: Patient is disoriented to time and place, but oriented to person. IVF infusing into the left hand. DNR. VSS- blood pressure this afternoon was 107/55. On RA. Daughter in and out at the bedside. Johnson cath in place, urine looks better than yesterday, still cloudy at times. Periarea is red- good cath care. Ointment applied to the bilateral inner thighs- it has been red- looking better. Up with 1PA. Working with PT and OT. Tolerating a regular diet. Abdomen is distended, but soft and has good bowel sounds this afternoon. Daughter claims she had loose stool yesterday afternoon, but I did not witness this. Tylenol given this morning for mild pain related to the cath and low grade temp. Cooperative with cares.
[2017-06-07 21:20] LABS: BASOPHIL % 0.2 %; EOSINOPHIL # 0.4 K/uL (0.0-0.5); HEMATOCRIT 25.4 % (30.0-46.0); HEMOGLOBIN 8.2 g/dL (10.0-15.0); IMMATURE GRANULOCYTE # 0.1 K/uL (0.0-0.3); IMMATURE GRANULOCYTE % 0.8 %; LYMPHOCYTE # 1.2 K/uL (0.8-4.0); LYMPHOCYTE % 12.3 %; MCH 30.1 pg (27.0-34.0); MCHC 32.3 gm/dL (32.0-36.5); MCV 93.4 fl (83.0-98.0); MONOCYTE # 0.8 K/uL (0.0-1.0); MONOCYTE % 7.9 %; MPV 10.2 fl (9.4-12.4); NEUTROPHIL # (ANC) 7.2 K/uL (1.8-7.8); NEUTROPHIL % 74.8 %; NRBC % 0 /100WBC (0-0.00); PLATELET COUNT 170 K/uL (150-450); RBC 2.72 M/uL (3.00-5.00); RDW-CV 14.1 % (11.9-14.6); WBC 9.7 K/uL (4.0-11.0)
--- NOTE | 2017-06-08 03:03 | NUR ---
notified of temp. 102.5. new orders recieved see orders.
[2017-06-08 06:26] LABS: BASOPHIL % 0.3 %; EOSINOPHIL # 0.3 K/uL (0.0-0.5); EOSINOPHIL % 5.1 %; HEMATOCRIT 25.4 % (30.0-46.0); HEMOGLOBIN 8.1 g/dL (10.0-15.0); IMMATURE GRANULOCYTE # 0.1 K/uL (0.0-0.3); LYMPHOCYTE # 1.4 K/uL (0.8-4.0); LYMPHOCYTE % 21.9 %; MCHC 31.9 gm/dL (32.0-36.5); MCV 94.1 fl (83.0-98.0); MONOCYTE # 0.5 K/uL (0.0-1.0); MONOCYTE % 7.6 %; MPV 10.1 fl (9.4-12.4); NEUTROPHIL % 64.1 %; NRBC % 0 /100WBC (0-0.00); PLATELET COUNT 166 K/uL (150-450); RDW-CV 14.1 % (11.9-14.6); WBC 6.3 K/uL (4.0-11.0)
[2017-06-08 06:38] LABS: ANION GAP 13.2 (10.0-19.0); CALCIUM 7.9 mg/dL (8.5-10.5); CREATININE 2.5 mg/dL (0.5-1.1); PHOSPHORUS 2.5 mg/dL (2.5-4.9); POTASSIUM 4.2 mMol/L (3.7-5.1)
[2017-06-08 06:40] LABS: ALBUMIN 1.8 gm/dL (3.5-5.0)
--- NOTE | 2017-06-08 07:13 | NUR ---
Significant Event: Pt oriented to self. Alert and cooperative with cares. Accidental removal of ramirez catheter happened at HS. New 3-way inserted per md and was hooked to CBI for a short time, with no blood noted. T-max 102.5 orally, abfebrile second assessment. Repositioned q 2 hours. No c/o pain. Cont to monitor. Follow up:
--- NOTE | 2017-06-08 16:51 | NUR ---
Significant Event: Patient is alert and oriented to self only. Not time or place. Johnson in place and still draining a purluent yellow milkly color. Tolerating regular diet. IVF d/c. D/C levaquin and going to start on a different antibiotic- pharmacy is checking with allergies. Waiting on a plan for Dr. Winters to possibly remove kidney stone. DNR. Denies pain. Up with 1pa and walker and gait belt. Daugther at the bedside. L)Hand IV, SL. Cooperative with cares.
--- NOTE | 2017-06-09 04:14 | NUR ---
Significant Event: Pt alert and disoriented to time and place. confused. Cooperative with cares. Johnson intact draining cloudy yellow urine. 1 assist with walker and gait belt. IV antibiotics. SL IV to left hand. no BM this shift. mild temp last night. VSS. RA. pt is DNR. Slept most of shift. Follow up:reorient confused pt.
[2017-06-09 04:19] LABS: BASOPHIL % 0.3 %; EOSINOPHIL # 0.4 K/uL (0.0-0.5); EOSINOPHIL % 5.1 %; HEMATOCRIT 25.6 % (30.0-46.0); HEMOGLOBIN 8.4 g/dL (10.0-15.0); IMMATURE GRANULOCYTE # 0.1 K/uL (0.0-0.3); LYMPHOCYTE # 1.1 K/uL (0.8-4.0); LYMPHOCYTE % 14.8 %; MCH 30.5 pg (27.0-34.0); MCHC 32.8 gm/dL (32.0-36.5); MCV 93.1 fl (83.0-98.0); MONOCYTE # 0.6 K/uL (0.0-1.0); MONOCYTE % 7.6 %; MPV 10.1 fl (9.4-12.4); NEUTROPHIL # (ANC) 5.1 K/uL (1.8-7.8); NEUTROPHIL % 71.2 %; NRBC % 0 /100WBC (0-0.00); PLATELET COUNT 181 K/uL (150-450); RBC 2.75 M/uL (3.00-5.00); RDW-CV 14.3 % (11.9-14.6); WBC 7.2 K/uL (4.0-11.0)
[2017-06-09 04:36] LABS: ANION GAP 14.6 (10.0-19.0); CALCIUM 8.1 mg/dL (8.5-10.5); CREATININE 2.5 mg/dL (0.5-1.1); PHOSPHORUS 2.4 mg/dL (2.5-4.9); POTASSIUM 4.6 mMol/L (3.7-5.1)
[2017-06-09 04:37] LABS: ALBUMIN 1.9 gm/dL (3.5-5.0)
--- NOTE | 2017-06-09 11:43 | NUR ---
A-NUTRITION F/U ALERT/DISORIENTED TO TIME/PLAC. CONFUSED LABS: NA 144, K+ 4.6, GLU 106, BUN 47, VRT 2.5, ALB 1.9 MEDS: MERREM (ADDED), LEVAQUIN (D/C) DIET RX: REGULAR W/ENSURE COMPACT TID. PO INTAKE HAS BEEN GOOD WITH 50-100% SINCE LAST F/U. EST NUTR NEEDS: 2668-9529 KCALS (25-30 KCALS/KG) 63-82 GM PROTEIN (1.0-1.3 GM/KG) 1 ML FLUID/KCAL D-AT NUTRITION RISK W/INADEQUATE ORAL INTAKE AT TIMES R/T ALTERED LOS AEB DEMENTIA DX, INTAKE RECORDS. I-CONTINUE W/ENSURE ENLIVE COMPACT TID; ENCOURAGE INTAKE M/E-GOAL: PO INTAKE >/=50% FOR DURATION OF ADMIT 1)F/U PO INTAKE, SUPPLEMENT, AND POC IN 3-5 DAYS 2)ASSIST NEEDED
--- NOTE | 2017-06-09 14:18 | NUR ---
Significant event: Up to BR with one assist, gait belt and walker. Appetite good. Johnson draining cloudy yellow urine that was pink at times and then became cloudy yellow again. Up in chair. Confused to place and time, oriented to person and family.
--- NOTE | 2017-06-10 02:56 | NUR ---
Significant Event: Pt alert and oriented to self only. 1 assist with walker and gait belt. daughter at bedside last night. bed alarm on at all times. denies pain or neausea. mild temp on first assessment, tylenol given and returned to normal. RA. other VSS. DNR. DW. ramirez intact draining cloudy yellow urine. slept most of shift. Follow up:
[2017-06-10 06:05] LABS: BASOPHIL % 0.3 %; EOSINOPHIL # 0.4 K/uL (0.0-0.5); EOSINOPHIL % 5.6 %; HEMATOCRIT 26.7 % (30.0-46.0); HEMOGLOBIN 8.6 g/dL (10.0-15.0); IMMATURE GRANULOCYTE # 0.1 K/uL (0.0-0.3); IMMATURE GRANULOCYTE % 1.3 %; LYMPHOCYTE % 14.6 %; MCH 30.3 pg (27.0-34.0); MCHC 32.2 gm/dL (32.0-36.5); MONOCYTE # 0.5 K/uL (0.0-1.0); MONOCYTE % 7.7 %; MPV 10.4 fl (9.4-12.4); NEUTROPHIL # (ANC) 4.9 K/uL (1.8-7.8); NEUTROPHIL % 70.5 %; NRBC % 0 /100WBC (0-0.00); PLATELET COUNT 202 K/uL (150-450); RBC 2.84 M/uL (3.00-5.00); RDW-CV 14.5 % (11.9-14.6); WBC 6.9 K/uL (4.0-11.0)
[2017-06-10 06:18] LABS: ANION GAP 13.2 (10.0-19.0); CALCIUM 8.7 mg/dL (8.5-10.5); CREATININE 2.7 mg/dL (0.5-1.1); MAGNESIUM 2.2 mg/dL (1.8-2.6); PHOSPHORUS 3.2 mg/dL (2.5-4.9); POTASSIUM 4.2 mMol/L (3.7-5.1)
--- NOTE | 2017-06-10 16:32 | NUR ---
Significant event: Up in chair today. Up with one assist, walker, gait belt and shoes. Confused to place and time, oriented to person. Had large soft BM. Denies pain. Johnson continues to drain yellow, cloudy urine.
--- NOTE | 2017-06-11 04:55 | NUR ---
Significant Event: PATIENT IS ALERT, CONFUSED TO PLACE AND TIME. AMBULATES WITH ONE ASSIST GB WALKER WEARS SHOES TO AMBULATE. VSS WNL. TAKES PILLS WHOLE WITH WATER.ALARMS ON AT ALL TIMES. IV SL TO L HAND. MILLER DRAINING CLOUDY URINE 850 OUT. NO COMPLAINT OF NAUSEA PAIN OR DISCOMFORT. Follow up:
[2017-06-11 06:16] LABS: BASOPHIL % 0.3 %; EOSINOPHIL # 0.4 K/uL (0.0-0.5); EOSINOPHIL % 5.5 %; HEMATOCRIT 24.8 % (30.0-46.0); HEMOGLOBIN 8.2 g/dL (10.0-15.0); IMMATURE GRANULOCYTE % 0.6 %; LYMPHOCYTE # 1.2 K/uL (0.8-4.0); LYMPHOCYTE % 18.2 %; MCH 30.7 pg (27.0-34.0); MCHC 33.1 gm/dL (32.0-36.5); MCV 92.9 fl (83.0-98.0); MONOCYTE # 0.5 K/uL (0.0-1.0); MONOCYTE % 8.3 %; MPV 9.8 fl (9.4-12.4); NEUTROPHIL # (ANC) 4.3 K/uL (1.8-7.8); NEUTROPHIL % 67.1 %; NRBC % 0 /100WBC (0-0.00); PLATELET COUNT 209 K/uL (150-450); RBC 2.67 M/uL (3.00-5.00); RDW-CV 14.3 % (11.9-14.6); WBC 6.4 K/uL (4.0-11.0)
[2017-06-11 06:30] LABS: ANION GAP 13.6 (10.0-19.0); CALCIUM 8.2 mg/dL (8.5-10.5); CREATININE 2.7 mg/dL (0.5-1.1); MAGNESIUM 2.2 mg/dL (1.8-2.6); PHOSPHORUS 3.7 mg/dL (2.5-4.9); POTASSIUM 4.6 mMol/L (3.7-5.1)
[2017-06-11 06:31] LABS: ALBUMIN 1.9 gm/dL (3.5-5.0)
--- NOTE | 2017-06-11 15:27 | NUR ---
Significant event: Up in chair, ambulating good. Ambulates with walker and gait belt and one assist. Appetite good. Fluids encouraged. Denies pain. Johnson draining cloudy yellow urine.
--- NOTE | 2017-06-12 04:32 | NUR ---
sSignificant Event: PAITIENT IS ALERT TO SELF NOT TO PLACE, TIME OR SITUATION. AMBULATES WITH ONE ASSIST GB WALKER. VSS WNL ON RA. DENIES PAIN MILLER DRAINING CLOUDY YELLOW URINE. SAT IN CHAIR AND AMBULATED IN ROOM. PLEASANT AND COOPERATIVE WITH CARES Follow up:
[2017-06-12 06:09] LABS: BASOPHIL % 0.5 %; EOSINOPHIL # 0.3 K/uL (0.0-0.5); EOSINOPHIL % 5.7 %; IMMATURE GRANULOCYTE % 0.7 %; LYMPHOCYTE # 1.1 K/uL (0.8-4.0); MCH 29.6 pg (27.0-34.0); MCHC 31.6 gm/dL (32.0-36.5); MCV 93.6 fl (83.0-98.0); MONOCYTE # 0.5 K/uL (0.0-1.0); MONOCYTE % 8.5 %; MPV 9.6 fl (9.4-12.4); NEUTROPHIL # (ANC) 3.7 K/uL (1.8-7.8); NEUTROPHIL % 65.6 %; NRBC % 0 /100WBC (0-0.00); PLATELET COUNT 219 K/uL (150-450); RBC 2.67 M/uL (3.00-5.00); RDW-CV 14.6 % (11.9-14.6); WBC 5.6 K/uL (4.0-11.0)
[2017-06-12 06:13] LABS: HEMOGLOBIN 7.9 g/dL (10.0-15.0)
[2017-06-12 06:29] LABS: ANION GAP 13.9 (10.0-19.0); CALCIUM 8.4 mg/dL (8.5-10.5); CREATININE 2.7 mg/dL (0.5-1.1); MAGNESIUM 2.4 mg/dL (1.8-2.6); PHOSPHORUS 3.8 mg/dL (2.5-4.9); POTASSIUM 4.9 mMol/L (3.7-5.1)
[2017-06-12 06:32] LABS: ALBUMIN 1.9 gm/dL (3.5-5.0)
--- NOTE | 2017-06-12 13:12 | NUR ---
A - NUTRITION FOLLOW-UP. CONFUSED AT TIMES. WEIGHT UP SINCE ADMIT. LABS: BUN 63, CREA 2.7, ALB 1.9 MEDS: NO NEW MEDS DIET: REGULAR W/ ENSURE COMPACT TID. INTAKE 80% X10 MEALS. GOOD APPETITE PER SHIFT REPORT. EST NEEDS: 8127-4450 KCAL, 63-82 GRAMS PROTEIN, FLUID NEEDS: 1ML/KCAL D - NUTRITION PROBLEM RESOLVED. I - CONTINUE W/ ENSURE COMPACT TID TO MAINTAIN NUTRITION STATUS. M/E - GOAL: PT WILL CONTINUE TO TOLERATE >75% OF MEALS AND AT LEAST ONE ORAL SUPPLEMENT PER DAY IN 5-7 DAYS.
--- NOTE | 2017-06-12 16:06 | NUR ---
Significant Event:Patient up in chair for meals, family here for most of the day, 1840 in po, 1250 out urine per ramirez, showered, & BM before showering, disoriented to place, ambulates with one assist, startles easily but pleasant and cooperative Follow up:
--- NOTE | 2017-06-13 05:19 | NUR ---
Significant Event: FC IN PLACE AND PATENT. PLEASANTLY CONFUSED. PIV TO LEFT WRIST SL. TYLENOL ADMINISTERED X1 AT 8 FOR C/O DISCOMFORT. COOPERATIVE WITH CARES. Follow up:
--- NOTE | 2017-06-13 19:50 | NUR ---
Significant Event: Patient alert and oriented to person, disoriented to time/place and is forgetful. Johnson patent and drains cloudy, yellow urine with white sediment with a total of 1200 ml out for the shift. Oral fluids encouraged. Up to the bathroom with assist and patient had 2 moderate BM's and a small amount of blood noted on the disposable wipe. Ambulated in the hallway x 2 a short distance. Patient has been up in the recliner most of the shift. Tylenol 500 mg given at 1710 for c/o R) knee and urinary catheter discomfort. Dr Ansari here this morning and patient will have surgery for the kidney stone on Thursday. Heparin to be held starting on Thursday. Saline lock to her L) wrist on continues on IV antibiotics. Follow up:
--- NOTE | 2017-06-14 03:33 | NUR ---
Pt. is pleasantly confused. RA. VSS. IV to L) forearm - saline locked. IV intermittant antibx. Johnson patent with cloudy, pink/orangeish urine draining. No c/o pain. 1 assist with walker. Slept throughout night. Cooperative with cares.
[2017-06-14 06:12] LABS: ALBUMIN 2.3 gm/dL (3.5-5.0); CALCIUM 8.9 mg/dL (8.5-10.5); CREATININE 2.4 mg/dL (0.5-1.1); PHOSPHORUS 4.3 mg/dL (2.5-4.9)
--- NOTE | 2017-06-14 19:31 | NUR ---
Significant Event: UP TO BR X3 HAD SMALL SEMIFORMED BM, HAS SOME BLOOD NOTED FROM HEMMORIDS...MILLER CATH INTACT. PATENT WITH PINK TINGED URINE, HAD 1400 ML OUT MILLER...IS FORGETFUL BED/CHAIR ALARMS ON... Follow up:
--- NOTE | 2017-06-15 03:56 | NUR ---
Pt. oriented to self - forgetful. 1 assist with walker to BR. Up in chair. IV in L) arm - saline locked with intermittant antibx. Johnson draining pink/orange urine, cloudy urine. 2 BM this shift. NPO since [place] for lithotripsy in AM. No c/o pain. Hold heparin. Slept well through night. Cooperative with cares.
[2017-06-15 04:37] LABS: ALBUMIN 2.2 gm/dL (3.5-5.0); CREATININE 2.4 mg/dL (0.5-1.1); PHOSPHORUS 3.5 mg/dL (2.5-4.9)
[2017-06-15 04:38] LABS: ANION GAP 12.6 (10.0-19.0); POTASSIUM 5.6 mMol/L (3.7-5.1)
--- NOTE | 2017-06-15 13:04 | NUR ---
NOTIFIED [facility] [place] AND UPDATED LISA SHE WOULD LIKE OF ME TO FAX INFO TO HER AND THEY WILL PLAN ON PATIENT COMING BACK ONCE SHE IS MEDIALLY STABLE.
--- NOTE | 2017-06-15 15:42 | NUR ---
A&O-PLEASANTLY CONFUSED. 1PA. VSS. LS CLEAR. CSM WNL. MILLER INTACT 1250ML OUTPUT PINK/ORANGE/CLOUDY. BM X2 TODAY. CLEAR LIQUIDS TODAY, NPO AT MID NOC. LITHO TOMORROW, PERMITS ON CHART RISK AND BENIFITS NOT DONE YET. L HAND SL INT IN IV ATBX. DAUGHTER AT BEDSIDE.
--- NOTE | 2017-06-16 04:28 | NUR ---
Pt. oriented to self - forgetful. 1 assist with walker. RA. VSS. IV in L) arm hand - saline locked with intermittant antibx. Alex patent. NPO since [place] for lithotripsy today. Risks and benefits have NOT been done. Consents not signed. POA will be up in AM. Bed alarms on at all times. Cooperative with cares.
[2017-06-16 04:59] LABS: ALBUMIN 2.4 gm/dL (3.5-5.0); ANION GAP 11.8 (10.0-19.0); CALCIUM 8.9 mg/dL (8.5-10.5); CREATININE 2.2 mg/dL (0.5-1.1); PHOSPHORUS 4.5 mg/dL (2.5-4.9); POTASSIUM 4.8 mMol/L (3.7-5.1)
--- NOTE | 2017-06-16 16:13 | NUR ---
Significant Event:A/O to person, very forgetful, startles easily, multiple cues with new instructions. Ambulates with 1 assist, gait belt and walker. NSR. SBO 100's to 130's. HR 70's and 80's. No edema. Remains on room air with clear lungs, diminished in the bases. NPO today for OR/ ESWAL. BM x 3 "are normal for her." Johnson is creamy, blood tinged 1400 ml emptied prior to OR. Chlorhexadine bath/shower with shampoo today prior to OR. Moisture barrier applied to coccyx with toileting and hygiene. Ointment to groin area after bath. Permits for OR not signed because no risks or benefits documented. Daughters will follow patient to OR to speak to Dr Ansari and will sign permit for patient. Left for OR @ [id number]. Follow up:Recover after ESWAL and stent placment.
--- NOTE | 2017-06-17 04:10 | NUR ---
Pt. oriented to self - pleasantly confused. 1 assist with walker. IV to L) hand - saline locked. Back from lithotripsy yesterday at shift change - no new orders. Had liquids before falling to sleep. Regular diet. Johnson patent with cloudy urine draining. No edema. Bed alarm on at all times. Cooperative with cares.
[2017-06-17 05:14] LABS: BASOPHIL # 0.1 K/uL (0.0-0.2); BASOPHIL % 0.8 %; EOSINOPHIL # 0.4 K/uL (0.0-0.5); EOSINOPHIL % 6.7 %; HEMATOCRIT 29.6 % (30.0-46.0); HEMOGLOBIN 9.4 g/dL (10.0-15.0); IMMATURE GRANULOCYTE % 0.7 %; LYMPHOCYTE # 1.2 K/uL (0.8-4.0); LYMPHOCYTE % 20.4 %; MCH 29.9 pg (27.0-34.0); MCHC 31.8 gm/dL (32.0-36.5); MCV 94.3 fl (83.0-98.0); MONOCYTE # 0.5 K/uL (0.0-1.0); MONOCYTE % 8.4 %; MPV 9.6 fl (9.4-12.4); NEUTROPHIL # (ANC) 3.8 K/uL (1.8-7.8); NRBC % 0 /100WBC (0-0.00); PLATELET COUNT 262 K/uL (150-450); RBC 3.14 M/uL (3.00-5.00); RDW-CV 14.5 % (11.9-14.6)
[2017-06-17 05:40] LABS: ALBUMIN 2.4 gm/dL (3.5-5.0); ANION GAP 12.8 (10.0-19.0); CALCIUM 8.9 mg/dL (8.5-10.5); CREATININE 2.2 mg/dL (0.5-1.1); PHOSPHORUS 4.7 mg/dL (2.5-4.9); POTASSIUM 4.8 mMol/L (3.7-5.1)
--- NOTE | 2017-06-17 10:40 | NUR ---
A - NUTRITION F/U. A/O X 1. GLU 80, BUN/WATER QUALITY TESTER 48/2.2, ALB 2.4. WT DOWN 4# SINCE ADMISSION. CURRENTLY NPO AFTER LITHOTRIPSY YEST. INTAKE PRIOR TO OR 75-100%. OFFERED ENSURE COMPACT TID. D - AT RISK W/ UNINTENDED WT LOSS R/T ?INADEQUATE INTAKE VS. ERROR IN WT AEB 4# WT LOSS. I - GOAL: 75% INTAKE BY NEXT REVIEW. M/E - WILL CONT ENSURE COMPACT TID WHEN DIET RESUMES AND F/U ON INTAKE AND WT IN 2-3 DAYS.
--- NOTE | 2017-06-17 12:16 | NUR ---
RECEIVED REFERRAL THAT PATIENT CAN RETURN TO [facility] TOMORROW. I SPOKE TO PATIENT AND HER DAUGHTER DAVON AT THE BEDSIDE. UPDATED THEM THAT THAI WILL BE READY FOR TRANSFERE BACK TO [facility] TOMORROW AND THEY ARE OK WITH THIS. DAVON WILL PLAN ON TRANSPORTING THAI BACK VIA PRIVATE CAR. WILL PLAN ON LEAVING HERE AT 1300. I NOIFIED Taran COY AND UPDATED HER OF THIS AND SHE WILL COMPLETE THE PAPER WORK. NOTIFIED [facility] AND SPOKE TO LISA UPDATED HER OF THE DISCHARGE PLANS. THEY WILL PLAN ON PATIENT COMING TOMORROW.
--- NOTE | 2017-06-18 01:39 | NUR ---
SIGNIFICANT EVENT: Pt alert, oriented to self. Lithotripsy on 06/16/17, stent placed to R) ureter. Johnson out on 06/17/17, voiding well. VSS on RA. Plan to DC today to [facility] unit - tentative time of 1300. PIV to L) hand infusing 1/2NA at 75/hr. Regular diet. 1PA with walker and gaitbelt. Pleasant and cooperative with cares.
[2017-06-18 05:18] LABS: BASOPHIL % 0.6 %; EOSINOPHIL # 0.3 K/uL (0.0-0.5); EOSINOPHIL % 6.3 %; IMMATURE GRANULOCYTE % 0.4 %; LYMPHOCYTE # 1.1 K/uL (0.8-4.0); LYMPHOCYTE % 19.9 %; MCH 30.5 pg (27.0-34.0); MCHC 32.1 gm/dL (32.0-36.5); MCV 94.9 fl (83.0-98.0); MONOCYTE # 0.4 K/uL (0.0-1.0); MONOCYTE % 7.8 %; MPV 9.7 fl (9.4-12.4); NEUTROPHIL # (ANC) 3.4 K/uL (1.8-7.8); NRBC % 0 /100WBC (0-0.00); PLATELET COUNT 246 K/uL (150-450); RBC 2.95 M/uL (3.00-5.00); RDW-CV 14.5 % (11.9-14.6); WBC 5.3 K/uL (4.0-11.0)
[2017-06-18 05:37] LABS: ALBUMIN 2.3 gm/dL (3.5-5.0); ANION GAP 10.4 (10.0-19.0); CALCIUM 8.2 mg/dL (8.5-10.5); CREATININE 2.2 mg/dL (0.5-1.1); PHOSPHORUS 3.5 mg/dL (2.5-4.9); POTASSIUM 4.4 mMol/L (3.7-5.1)
--- NOTE | 2017-06-18 09:00 | NUR ---
RECEIVED CALL FROM SUSAN AT [facility] SHE INFORMS ME THAT ONCE I HAVE MEDICATION ORDERS THAT SHE NEED THEM FAXED SO THAT SHE CAN GET THE MEDS FROM THE PHARMACY. SPOKE TO LATANYA COY SHE INFORMS ME THAT THE TRANSFERE IS ON HOLD FOR NOW. I NOTIFIED SUSAN AT [facility] AND UPDATED HER. WILL KEEP HER UPDATED ON PLANS. LATANYA REPORTS THAT THEY ARE GOING TO MORE TEST TO EVAULTAE THE KIDNEY STONE, AND ARE GOING TO MAKE DECISION LATER TO WHETHER PATIENT WILL BE ABLE TO DISCHARGE TODAY.
--- NOTE | 2017-06-18 14:00 | NUR ---
RECEIVED CALL FROM LATANYA COY AND SHE INFORMS ME THAT PATIENT HAS BEEN MEDICALLY CLEARED TO DISCHARGE. AND PATIENT'S DAUGHTER IS AT THE BEDSIDE AND WILL PLAN ON TAKING PATIENT HOME. NOTIFIED KRISTY AT [facility] AND UPDATED HER THAT THAI WILL BE COMING BACK TODAY AND SHE IS OK WITH THIS. SHE WOULD LIKE FOR ME TO FAX TRANSFERE ORDERS TO HER. SHE WILL THAN RETURN A FORM VIA FAX THAT NEEDS TO BE SIGNED THAT HAS THE LIST OF PATIENT'S MEDICATION. AND SHE WILL NEED THIS FAXED BACK TO HER. LATANYA COY IS AWARE OF THIS AND SHE WILL SIGN IT AND I WILL FAX IT BACK TO SUSAN.
[2017-06-18] MEDS ORDERED: MYCOSTATIN OINT30 GM TOP (15:15)
[2017-06-18] MEDS ORDERED: PROTONIX40 MG PO (15:16)
--- NOTE | 2017-06-18 16:59 | NUR ---
DISCHARGE; Pt. and family were instructed on discharge instructions, scripts, new medications, and RITCHIE. Verbalized understanding, no questions or concerns. IV removed by primary RN. Left with all belongings and prescriptions. D/C to [facility].
== END 2017-06-18 16:30 | DRG 871 ==
LOC: GMSU 19:42 → GICU 19:42 → GMSU 19:42 → GICU 06-01 03:00 → GMSU 06-03 21:40
PROVIDERS: Internal Medicine; Internal Medicine Nephrology; Physician Assistant; ADMIT Internal Medicine
PROC: 0TF38ZZ Fragmentation in Right Kidney Pelvis, Via Natural or Artificial Opening Endoscopic (ICD-10-PCS; principal; 2017-06-16)
PROC: 0T768DZ Dilation of Right Ureter with Intraluminal Device, Via Natural or Artificial Opening Endoscopic (ICD-10-PCS; principal; 2017-06-16)
DX: B37.7 Candidal sepsis (principal); R65.20 Severe sepsis without septic shock; E87.2 Acidosis; N18.4 Chronic kidney disease, stage 4 (severe); N17.9 Acute kidney failure, unspecified; N13.2 Hydronephrosis with renal and ureteral calculous obstruction; E87.5 Hyperkalemia; E86.0 Dehydration; B37.41 Candidal cystitis and urethritis; B96.89 Other specified bacterial agents as the cause of diseases classified elsewhere; E03.9 Hypothyroidism, unspecified; F03.90 Unspecified dementia, unspecified severity, without behavioral disturbance, psychotic disturbance, mood disturbance, and anxiety; D63.1 Anemia in chronic kidney disease; F32.9 Major depressive disorder, single episode, unspecified; K29.70 Gastritis, unspecified, without bleeding; I12.9 Hypertensive chronic kidney disease with stage 1 through stage 4 chronic kidney disease, or unspecified chronic kidney disease; Z87.440 Personal history of urinary (tract) infections; K29.50 Unspecified chronic gastritis without bleeding
CPT/HCPCS: C1769; C9113; J0610; J1644; J2001; J2185; J3480; J7030; J7040; J7050; J7060; J7120

== ENCOUNTER → 2017-07-01 | Outpatient (CLI) | payer MEDICARE, BC ==
[~2017-07-01] MED LIST changes: +MOBIC7.5 MG PO; +MYCOSTATIN OINT30 GM TOP; +PROTONIX40 MG PO; +PROVENTIL2.5 MG/0.5 INH
== END ==
LOC: LGSMG 14:50
DX: N17.9 Acute kidney failure, unspecified (principal); N13.30 Unspecified hydronephrosis